=== PATIENT | female | born 1960 | race Caucasian/White ===

== ENCOUNTER 2016-07-25 18:58 | Inpatient (IN) ==
--- NOTE | 2016-07-25 19:26 | Emergency Department Note ---
SOB HPI - General Chief Complaint: Shortness of Breath/Dyspnea Stated Complaint: shortness of breathe Time Seen by Provider: 07/25/16 19:26 Source: EMS Mode of arrival: EMS - History of Present Illness This patient was found at the [facility] to have a low oxygen saturation of 65 % on room air. She seemed very sleepy now but the nurses say she will arouse and answer questions. There is some history of a recent pneumonia and she has finished antibiotics. This patient has an extensive past history which has been arranged from our system and we are trying to retrieve it. - Related Data Home Medications Medication Instructions Recorded Confirmed Alendronate Sodium [Fosamax] 70 mg PO WEEKLY 07/25/16 07/25/16 Aspirin [Fabi Chewable Aspirin] 81 mg PO DAILY 07/25/16 07/25/16 Cholecalciferol (Vitamin D3) 1 cap PO DAILY 07/25/16 07/25/16 [Dialyvite Vitamin D] Clopidogrel Bisulfate [Plavix] 75 mg PO HS 07/25/16 07/25/16 Divalproex Sodium [Depakote] 250 mg PO BID 07/25/16 07/25/16 Esomeprazole Magnesium [Nexium 40 mg PO DAILY 07/25/16 07/25/16 24Hr] Gabapentin [Neurontin] 300 mg PO Q6 07/25/16 07/25/16 Methadone [Dolophine] 2.5 mg PO BID 07/25/16 07/25/16 Nitroglycerin [Nitrostat] 0.4 mg SL PRN PRN 07/25/16 07/25/16 Ondansetron [Zofran Odt] 8 mg PO PRN PRN 07/25/16 07/25/16 Polyethylene Glycol 3350 [Miralax] 1 packet PO Q48H 07/25/16 07/25/16 Sertraline [Zoloft] 50 mg PO DAILY 07/25/16 07/25/16 Sevelamer [Renvela] 800 mg PO TIDCC 07/25/16 07/25/16 amLODIPine [Norvasc] 5 mg PO ONCE 07/25/16 07/25/16 glipiZIDE [Glucotrol] 5 mg PO DAILY 07/25/16 07/25/16 oxyCODONE HCL [Oxycodone HCl] 5 mg PO Q4H PRN 07/25/16 07/25/16 Allergies Allergy/AdvReac Type Severity Reaction Status Date / Time hydrocodone Allergy Unknown Unknown Verified 07/25/16 19:31 Iodinated Contrast Media - Allergy Unknown Unknown Verified 07/25/16 19:31 Oral and Penicillins Allergy Unknown Unknown Verified 07/25/16 19:31 Review of Systems Limitations: ROS unobtainable due to patients medical condition Past Medical History - Past Medical History Medical history: Reports: diabetes Surgical history ED: Reports: hip replacement Physical Exam - General Limitations: altered mental status General appearance: in no apparent distress - Head Head exam: atraumatic - Eye Eye exam: Present: normal appearance - ENT ENT exam: normal exam - Neck Neck exam: Present: normal inspection - Chest Chest inspection: Present: normal inspection - Respiratory Respiratory exam: Present: normal lung sounds bilaterally - Cardiovascular Cardiovascular exam: Present: regular rate, normal rhythm, normal heart sounds - Abdominal Exam Abdominal exam: Present: soft. Absent: distention, tenderness - Skin Skin exam: Present: warm, dry, intact Course Vital Signs Temperature 99.0 F 07/25/16 19:00 Pulse Rate 79 07/25/16 19:00 Respiratory Rate 16 07/25/16 19:00 Blood Pressure 147/80 07/25/16 19:00 Pulse Oximetry (%) 98 07/25/16 19:00 Temperature 99.0 F 07/25/16 19:00 Pulse Rate 74 07/25/16 20:47 Respiratory Rate 16 07/25/16 19:00 Blood Pressure 142/86 07/25/16 20:47 Pulse Oximetry (%) 92 07/25/16 20:47 Shortness of Breath/Dyspnea - Lab Data Lab results reviewed: Yes I reviewed the patient's lab results. Result diagrams: 07/25/16 19:15 07/25/16 19:15 Lab Results 07/25/16 07/25/16 07/25/16 Range/Units 19:15 19:15 19:15 WBC 6.0 (4.5-11.0) K/mcL RBC 3.43 L (4.00-5.20) M/mcL Hgb 9.7 L (12.0-15.0) g/dL Hct 30.6 L (36.0-48.0) % MCV 89.3 (80.0-100.0) fL MCH 28.3 (26.0-34.0) pg MCHC 31.7 (31.0-36.0) g/dL RDW 16.8 H (11.5-14.5) % Plt Count 333 (140-440) K/mcL MPV 8.5 (7.4-10.4) fL Gran % 67.8 (38.0-78.0) % Lymph % (Auto) 20.1 (15.5-49.0) % Stan[place]aus % (Auto) 11.0 H (1.0-9.0) % Eos % (Auto) 0.9 (0.0-7.0) % Baso % (Auto) 0.2 (0.0-2.0) % Gran # 4.1 (1.8-8.0) K/mcL Lymph # 1.2 L (1.5-4.8) K/mcL Stan[place]aus # 0.7 (0.1-0.9) K/mcL Eos # 0.1 (0.0-0.7) K/mcL Baso # 0 (0.0-0.3) K/mcL VBG Lactic Acid 2.4 H (0.5-2.2) mmol/L Sodium 127 L (133-145) mmol/L Potassium 3.6 (3.3-5.1) mmol/L Chloride 83 L (96-108) mmol/L Carbon Dioxide 30 (22-30) mmol/L Anion Gap 14.0 (8-16) BUN 40 H (6-20) mg/dl Creatinine 4.1 H (0.6-1.1) mg/dl GFR Calculation 11 Glucose 474 H* (70-105) mg/dL Calcium 8.0 L (8.6-10.4) mg/dl Total Bilirubin 0.5 (0.0-1.0) mg/dL AST 11 (0-37) U/l ALT 9 (0-40) U/l Alkaline Phosphatase 91 (39-117) U/L Total Protein 8.5 H (5.9-8.4) gm/dL Albumin 3.3 (3.2-5.2) gm/dL Globulin 5.2 H (2.2-3.7) gm/dL Albumin/Globulin Ratio 0.6 L (1.0-2.3) - Radiology Data Radiology results reviewed: Yes I reviewed the patient's radiology results. ( chest x-ray is very hard to read may show a left lower lobe infiltrate) Disposition Clinical Impression: Community acquired pneumonia Disposition: Xfer As Inpt ([facility]) Condition: Fair Referrals: Fady Malcolm MD [Primary Care Provider] - Time of Disposition: 21:15
[2016-07-25 20:10] LABS: Basophils # (Auto) 0 K/mcL (0.0-0.3); Basophils % (Auto) 0.2 % (0.0-2.0); Eosinophils # (Auto) 0.1 K/mcL (0.0-0.7); Eosinophils % (Auto) 0.9 % (0.0-7.0); Granulocytes % (Auto) 67.8 % (38.0-78.0); Lymphocytes # (Auto) 1.2 K/mcL (1.5-4.8); Lymphocytes % (Auto) 20.1 % (15.5-49.0); Mean Cell Volume 89.3 fL (80.0-100.0); Mean Corpuscular HGB Conc 31.7 g/dL (31.0-36.0); Mean Corpuscular Hemoglobin 28.3 pg (26.0-34.0); Monocytes # (Auto) 0.7 K/mcL (0.1-0.9); Platelet Count 333 K/mcL (140-440); RBC 3.43 M/mcL (4.00-5.20); Red Cell Distribution Width 16.8 % (11.5-14.5)
[2016-07-25 20:34] LABS: ALT/SGPT 9 U/l (0-40); Albumin 3.3 gm/dL (3.2-5.2); Albumin/Globulin Ratio 0.6 (1.0-2.3); Alkaline Phosphatase 91 U/L (39-117); Blood Urea Nitrogen 40 mg/dl (6-20)
[2016-07-25] MEDS ORDERED: LEVOFLOXACIN 500 MG/100 ML BAG IV ONE (21:14)
[2016-07-25] MEDS ORDERED: NALOXONE HCL 0.4 MG/ML VIAL IV ONE (21:21)
[2016-07-25] MEDS ORDERED: VANCOMYCIN PER PHARMACY IV ONE (23:22)
[2016-07-25] MEDS ORDERED: CEFEPIME 2 GM in DEXTROSE 5% IN WATER 50 ML IV SCH (23:22)
[2016-07-25] MEDS ORDERED: ONDANSETRON 4 MG/2 ML VIAL IV PRN (23:22)
[2016-07-25] MEDS ORDERED: ACETAMINOPHEN 325 MG TABLET PO PRN (23:22)
[2016-07-25] MEDS ORDERED: amLODIPine 5 MG TABLET PO SCH (23:22)
[2016-07-25] MEDS ORDERED: DEXTROSE 50% 50 ML VIAL IV PRN (23:22)
[2016-07-25] MEDS ORDERED: ACETAMINOPHEN 1,000 MG/100 ML BOTTLE IV PRN (23:22)
[2016-07-25] MEDS ORDERED: HEPARIN 5,000 UNIT/ML VIAL ONE (23:33)
[2016-07-25] MEDS ORDERED: amLODIPine 5 MG TABLET ONE (23:33)
[2016-07-25] MEDS ORDERED: VANCOMYCIN 500 MG VIAL ONE (23:58)
[2016-07-25] MEDS ORDERED: VANCOMYCIN 1 GM VIAL ONE (23:58)
[2016-07-26] MEDS ORDERED: CEFEPIME 2 GM in DEXTROSE 5% IN WATER 50 ML IV ONE
[2016-07-26] MEDS: 0.9 % SODIUM CHLORIDE 10 ML SYRINGE IV SCH ×4 (01:43→22:24)
[2016-07-26 01:48] LABS: Hemoglobin A1C 9.3 % HGB (4.0-6.0)
[2016-07-26] MEDS ORDERED: INSULIN GLARGINE, HUMAN 1 UNIT/0.01 ML SQ ONE (02:03)
[2016-07-26] MEDS: INSULIN GLARGINE, HUMAN 1 UNIT/0.01 ML SQ SCH ×3 (02:03→22:05)
[2016-07-26] MEDS ORDERED: INSULIN LISPRO 1 UNIT/0.01 ML UNIT SQ ONE ×2 (02:43→05:55)
[2016-07-26] MEDS: INSULIN LISPRO 1 UNIT/0.01 ML UNIT SQ SCH ×5 (05:57→22:06)
[2016-07-26 06:51] LABS: Mean Cell Volume 89.1 fL (80.0-100.0); Mean Corpuscular HGB Conc 31.9 g/dL (31.0-36.0); Mean Corpuscular Hemoglobin 28.4 pg (26.0-34.0); Platelet Count 277 K/mcL (140-440); RBC 2.78 M/mcL (4.00-5.20); Red Cell Distribution Width 16.6 % (11.5-14.5)
[2016-07-26 07:14] LABS: ALT/SGPT 6 U/l (0-40); Albumin 2.8 gm/dL (3.2-5.2); Albumin/Globulin Ratio 0.7 (1.0-2.3); Alkaline Phosphatase 69 U/L (39-117); Bilirubin,Direct < 0.2 mg/dL (0.0-0.3); Blood Urea Nitrogen 47 mg/dl (6-20); Gamma Glutamyl Transpeptidase 18 U/L (5-36); Magnesium 2.5 mg/dL (1.6-2.5); Phosphorous 2.7 mg/dL (2.7-4.5); Uric Acid 3.9 mg/dL (2.5-8.0)
[2016-07-26 07:38] LABS: Anisocytosis 1+ (NONE SEEN); Lymphocytes % 26 % (15-49); Monocytes % (Manual) 11 % (1-9); Myelocytes % 1 % (0-0); Ovalocytes FEW (NONE SEEN); Pappenheimer Bodies FEW (NONE SEEN); Platelet Estimate NORMAL (NORMAL); RBC Morphology ABNORM (NORMAL); Segmented Neutrophils % 62 % (38-78)
--- NOTE | 2016-07-26 08:27 | XRay Report ---
HISTORY: Reason for Exam:low sat FINDINGS: Lung volumes are small, especially the left side. There is moderate consolidation in the left lung and left lower lobe and around the hilum. There is a smaller infiltrate centrally in the right lung and medially in the right lower lobe. The infiltrates are much worse today than they were on 10/19/13. Heart size is upper limits of normal. IMPRESSION: Bilateral infiltrates. This is more likely due to pneumonia and atelectasis rather than congestive heart failure. Interpreted and Authenticated by: Patel Galindo 07/26/16
[2016-07-26] MEDS: DIVALPROEX 125 MG CAP.SPRINK PO SCH ×2 (09:15→21:50)
[2016-07-26] MEDS: HEPARIN 5,000 UNIT/ML VIAL SQ SCH ×2 (09:18→21:52)
[2016-07-26] MEDS: ASPIRIN 81 MG TAB.CHEW PO SCH (09:19)
[2016-07-26] MEDS: MULTIVIT,THER IRON,CA,FA & MIN 1 TABLET PO SCH (09:19)
[2016-07-26] MEDS: DOCUSATE SODIUM 100 MG CAPSULE PO SCH ×2 (09:19→21:50)
[2016-07-26] MEDS: SERTRALINE 50 MG TABLET PO SCH (09:22)
--- NOTE | 2016-07-26 09:33 | History and Physical Report ---
DATE OF ADMISSION: 07/25/2016 DATE OF ADMISSION: 07/26/2016 PRIMARY CARE PHYSICIAN: Drake Angelo MD, health claims examiner, and Fady Malcolm MD REASON FOR ADMISSION: Worsening shortness of breath, along with mental status change. HISTORY OF CHIEF COMPLAINT: The patient is a 56-year-old with history of ESRD, on hemodialysis. She is a resident of a skilled nursing. She was discovered by staff short of breath, confused, weak, and very drowsy. Patient was sent to [facility] ER for evaluation. Initial workup was significant for severe hypoxia, requiring 4 liters of oxygen, with PaO2 75 on 4 liters of oxygen. The patient was promptly started on BiPAP. She is also significantly somnolent. She was given Narcan with arousal. Subsequently, hospitalist service was consulted in light of encephalopathy likely secondary to opioid excess, along with hypoxic respiratory failure and basilar pneumonia on imaging. At the time of examination, the patient is on BiPAP, barely able to open her eyes. No history could be obtained. Most of the history was obtained from review of medical records, from ER physician, and skilled nursing records. The patient, however, denies chest pain, palpitations. She has significant lower extremity vascular changes, with skin pigmentation. She is chronically on hemodialysis. PAST MEDICAL HISTORY: Significant for: 1. ESRD, on hemodialysis. 2. Renal osteodystrophy. 3. Coronary artery disease. 4. Diabetes mellitus type 2. 5. 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 6. Atypical seizures. 7. CVA 2012. 8. History of coronary artery disease, with stent placement. 9. Hyperlipidemia. 10. Hypertension. 11. Depression. SURGICAL HISTORY: 1. . 2. Appendectomy. 3. Cholecystectomy. 4. Hysterectomy. 5. Multiple hip surgeries. 6. Ankle surgery. 7. Fistula placement. 8. Adenoidectomy. 9. Coronary angiogram 2008 and 2011. CURRENT MEDICATIONS: Oxycodone 5. Amlodipine 5. Nitroglycerin 0.4. Sertraline 50. Glipizide 5. Sevelamer 800 three times a day. Gabapentin 300 every 6 hours. Plavix 75. Methadone 2.5 twice a day. Alendronate 70 weekly. Divalproex 250 twice a day. Aspirin 81. ALLERGIES: 1. PENICILLIN. 2. HYDROCODONE. 3. CONTRAST. 4. ADHESIVES. SOCIAL HISTORY: The patient resides at the [facility]. She is a FULL CODE STATUS. The patient has a history of smoking, but quit in 2007. She is and has 5 children. TG is the son. She is retired as a transportation maintenance supervisor. All of this was obtained from review of medical records. FAMILY HISTORY: Significant for mother with diabetes, heart failure, rheumatoid arthritis, hypertension. Father with diabetes. PHYSICAL EXAMINATION: GENERAL: The patient is very somnolent, nondistressed, on BiPAP. BMI 26. Height 5 feet 10 inches. VITAL SIGNS: Blood pressure 104/51, respiratory rate 21, temperature 99, pulse 79, saturations 97 percent on 4 liters of oxygen. HEENT: Pupils symmetric. Oral cavity dry. Constricted pupils. No subconjunctival pallor. No ear or nose discharge. NECK: No lymphadenopathy. HEART: S1, S2, occasionally irregular rhythm. ESM grade 1. Widespread crackles on deep inspiration, mostly in the lower chest. ABDOMEN: Soft, nontender. LOWER EXTREMITIES: No cyanosis or clubbing. Significant stasis changes, along with pigmentation. Fistula, right upper arm. SKIN: No suspicious lesions. PSYCHIATRIC: Somnolent, fatigued, lethargic. NEURO: Nonfocal, moving all four extremities, however, fatigued. LABS AND IMAGING: White count 6, hemoglobin 9.7, platelets 233. Lactic acid 2.4, sodium 127, potassium 3.6, creatinine 4.1, BUN 40, glucose 474. A1c 9.3, calcium 8, CRP 18, procalcitonin 2.24. Blood cultures pending. ABG 7.4/59/75 on 4 liters of oxygen. X-ray chest: Left basilar infiltrate, along with atelectasis, effusion, and hilar fullness. Final read pending. ASSESSMENT AND PLAN: 56-year-old with a history of end-stage renal disease/ischemic cardiomyopathy, with last ejection fraction EF 55 percent, admitted with acute decompensated heart failure/nosocomial pneumonia and hypoxic respiratory infection. 1. Hypoxic respiratory failure, likely a combination of pneumonia and congestive heart failure, currently on noninvasive ventilation to maintain oxygenation. 2. Acute decompensated heart failure secondary to fluid overload. Continue hemodialysis per nephrology. 3. Nosocomial pneumonia. Continue cefepime and vancomycin. Await cultures. Deescalate based on cultures. 4. Acute mental status change. Likely opioid excess. 5. Other prior medical issues: a. History of diabetes mellitus type 2. Continue basal prandial insulin. b. Neuropathy. Continue gabapentin. c. Chronic pain. Continue methadone. However, in light of mental status change, dose will be lowered, and restart until patient is able to tolerate orally. d. History of seizure disorder. Continue Depakote. e. History of coronary artery disease. Continue nitroglycerin/aspirin. f. Anxiety disorder. Continue sertraline. PLAN FOR TODAY: 1. Admit in ICU. 2. Noninvasive ventilation in light of hypoxic respiratory failure. 3. Narcan for opiate reversal. 4. Broad antibiotic coverage. 5. Hemodialysis per nephrology. 6. Preexisting condition. Management as above. Overall, a high-complexity admit with SNOQUALMIE score 16 mandating ICU hospital admission. Patient is critically ill in light of ESRD with cardiomyopathy, mental status change, hypoxic respiratory failure, and nosocomial pneumonia. We will continue to closely monitor hemodynamics. She is FULL CODE. TOTAL TIME SPENT ON HISTORY AND PHYSICAL: Over 50 minutes. In addition, 35 minutes critical care time spent on reviewing blood gases, imaging, management of noninvasive ventilation, transfer patient to ICU, and continuing efforts to stabilize patient. [email or web address]:isaias Job ID: [id number] Doc ID: [id number] Ancelmo MICHAEL
--- NOTE | 2016-07-26 10:10 | Internal Med Progress Note ---
Medical - PN: Subj Patient information: Note initiated : 07/26/16 at 10:05 am Service Date, if different from initiated Date: [] Patient: Elizabeth Fortune 56 y/o F admitted on 07/25/16 for shortness of breathe. Chief Complaint: [] Interval history: 3/- patient admitted with hypoxic respiratory failure and bilateral pneumonia likely nosocomial. Started on broad antibiotic coverage. Critically ill in light of end-stage renal disease on hemodialysis mental status change. PSI over 100 , CURB 65 score 4 signifying high risk mortality. Sel[place] score 16. Admitted to ICU. Blood gases reviewed with significant hypoxia large AA gradient. Chest imaging bilateral lower lobe infiltrate/cardiomegaly. started on vancomycin/cefepime/Levaquin. continue noninvasive ventilation in light of hypoxic respiratory failure. Patient responded to Narcan suggesting excessive opioid use. If continues to deteriorate initiate mechanical ventilation. Continue hemodialysis per nephrology. elevated lactic acid is 2.4. Blood sugar at 474. pro-calcitonin 2.24highly indicative of bacterial infectious process 3/5- overnight on BiPAP. encephalopathy improved with intermittent Narcan. on broad antibiotic coverage. Blood sugars down to 300. Lactic acid improved to 1.3. Hemoglobin down to 7.4. 2 units blood transfusion. High-risk mortality. Await sputum cultures. continue ICU care. Serial ABGs and chest imaging. Patient is more alert and now responding verbal commands. No overnight fever or chills. n 30% FiO2 BiPAP. - Constitutional Vitals: Vital Signs Temp Pulse Resp BP Pulse Ox 97.4 F L 64 14 93/49 98 07/26/16 04:00 07/26/16 08:21 07/26/16 08:21 07/26/16 06:00 07/26/16 08:21 Period Temp Pulse Resp BP Sys/Negro Pulse Ox Last 24 Hr 97.4 F-99.6 F 64-82 - 93-106/49-54 96-99 Intake and Output 07/25/16 07/26/16 07/26/16 21:59 05:59 13:59 Intake Total 625 / 625 Balance 625 / 625 Weight 183 lb 12.8 oz Intake & Output: Intake & Output 07/25/16 07/26/16 07/26/16 21:59 05:59 13:59 Intake Total 625 / 625 Balance 625 / 625 Weight 183 lb 12.8 oz Intake: IV 50 / 50 Dextrose 5% in Water 50 50 / 50 ml @ 100 mls/hr IV Q12H WOLFGANG with Maxipime 2 gm Rx #:[id number] Oral 50 / 50 IV - Manual Only 525 / 525 Exam: somnolent On BiPAP 30% FiO2 no telemetry events No agitation and anxiety Fistula right arm Nondistended abdomen Medical - PN: Obj Da - Labs CBC & Chem 7: 07/26/16 06:00 07/26/16 06:00 Labs: Abnormal Lab Results 07/26/16 07/26/16 07/25/16 06:00 06:00 23:23 RBC 2.78 L Hgb 7.9 L Hct 24.8 L RDW 16.6 H Monocytes % (Manual) 11 H Myelocytes % 1 H RBC Morphology Abnorm A Anisocytosis 1+ A Pappenheimer Bodies Few A Ovalocytes Few A RBC Fragments Few A Sodium 131 L Chloride 89 L BUN 47 H Creatinine 4.7 H Glucose 304 H Hemoglobin A1c 9.3 H Calcium 7.9 L Albumin 2.8 L Globulin 4.3 H Albumin/Globulin Ratio 0.7 L Meds: Medications Acetaminophen (Tylenol) 650 mg PO Q4-6HP PRN PRN Reason: PAIN/FEVER > 101 Amlodipine Besylate (Norvasc) 5 mg PO DAILY [facility] Aspirin (Aspirin) 81 mg PO DAILY [facility] Last Admin: 07/26/16 09:19 Dose: 81 mg Clopidogrel Bisulfate (Plavix) 75 mg PO HS [facility] Dextrose (Dextrose 50%) 0 ml IV UD PRN PRN Reason: Hypoglycemia Diagnostic Test (Pha) (Accu-Chek) 1 each FS ACHS [facility] Last Admin: 07/26/16 08:59 Dose: 1 each Divalproex Sodium (Depakote Sprinkles) 250 mg PO BID [facility] Last Admin: 07/26/16 09:15 Dose: 250 mg Docusate Sodium (Colace) 100 mg PO BID [facility] Last Admin: 07/26/16 09:19 Dose: 100 mg Heparin Sodium (Porcine) (Heparin) 5,000 unit SQ Q12 [facility] Last Admin: 07/26/16 09:18 Dose: 5,000 unit Acetaminophen (Ofirmev) 1,000 mg in 100 mls @ 200 mls/hr IV Q6HP PRN PRN Reason: PAIN/FEVER > 101 Cefepime HCl 1 gm/ Dextrose 50 mls @ 100 mls/hr IV DAILY [facility] Insulin Glargine (Lantus) 10 unit SQ BID [facility] Last Admin: 07/26/16 09:19 Dose: 1 unit Insulin Human Lispro (Humalog) 0 unit SQ ACHS [facility] PRN Reason: Protocol Last Admin: 07/26/16 09:18 Dose: 3 unit Iron Carb/Multivit/Coolidge/Folic Acid (Multivitamin W/Minerals) 1 tab PO DAILY [facility] Last Admin: 07/26/16 09:19 Dose: 1 tab Ondansetron HCl (Zofran) 4 mg IV Q4-6HP PRN PRN Reason: Nausea And Vomiting Senna/Docusate Sodium (Senna Plus Tablet) 1 tab PO HS [facility] Sertraline HCl (Zoloft) 50 mg PO DAILY [facility] Last Admin: 07/26/16 09:22 Dose: 50 mg Sodium Chloride (Saline Flush) 10 ml IV Q8 [facility] Last Admin: 07/26/16 06:00 Dose: 10 ml Medical - PN: A/P - Time Spent With Patient Total time spent is greater than 50% in coordination of care (as documented) at patient's floor/unit and/or counseling patient: Greater than 35 minutes (ritical care time) (1) Nosocomial pneumonia Status: Acute Assessment and plan: * bilateral lower lobe nosocomial pneumonia- vancomycin/ cefepime and Levaquin. high-risk mortality. await sputum Gram stain. Selawik II-18. * hypoxic respiratory failure-on noninvasive ventilation. Serial ABGs and chest imaging. intubate if clinical deterioration noted. * mental status change-secondary to nosocomial pneumonia/hypoxia. * anemia of chronic disease hemoglobin 7.9. In light of history of ischemic cardiomyopathy- transfuse 2 units. * ESRD on HD. managed by Devendra Angelo nephrology * dM type II-,continue basal prandial insulin. Blood sugars improved from 479- 300. * history of CAD continue aspirin * seizure disorder continue Depakote * chronic painwith recent opioid excess requiring Narcan. Restart methadone in once patient's somnolence resolved * Anxiety disorder-hold home meds * History of hypertension-restart amlodipine once able to take orally Plan * Continue ICU care. Patient critically ill Selawik II score 18. High risk mortality * noninvasive ventilation * Broad antibiotic coverage * 2 units blood transfusion * serial chest imaging/blood gases * Hemodialysis per nephrology * Hold oral meds until patient more awake and alert * intubate if clinical deterioration noted Current Visit: Yes Medical - PN: Qual - VTE Deep Vein Thrombosis/Pulmonary Embolism Present on Admission: No
[2016-07-26] MEDS ORDERED: LEVOFLOXACIN 750 MG/150 ML BAG IV SCH (10:15)
[2016-07-26] MEDS ORDERED: 0.9 % SODIUM CHLORIDE 250 ML IV SCH (10:15)
[2016-07-26] MEDS ORDERED: NITROGLYCERIN 0.4 MG TAB.SUBL SL PRN (10:21)
[2016-07-26] MEDS: amLODIPine 5 MG TABLET PO SCH (13:09)
[2016-07-26 15:11] LABS: Vancomycin,Random 26.9 ug/ml
[2016-07-26] MEDS: CEFEPIME 1 GM in DEXTROSE 5% IN WATER 50 ML IV SCH (17:48)
[2016-07-26 18:38] LABS: Basophils # (Auto) 0 K/mcL (0.0-0.3); Basophils % (Auto) 0.2 % (0.0-2.0); Eosinophils # (Auto) 0.1 K/mcL (0.0-0.7); Eosinophils % (Auto) 1.2 % (0.0-7.0); Granulocytes % (Auto) 68.9 % (38.0-78.0); Lymphocytes # (Auto) 1.2 K/mcL (1.5-4.8); Lymphocytes % (Auto) 21.2 % (15.5-49.0); Mean Cell Volume 88.9 fL (80.0-100.0); Mean Corpuscular HGB Conc 32.4 g/dL (31.0-36.0); Mean Corpuscular Hemoglobin 28.8 pg (26.0-34.0); Monocytes # (Auto) 0.5 K/mcL (0.1-0.9); Monocytes % (Auto) 8.5 % (1.0-9.0); Platelet Count 282 K/mcL (140-440); RBC 3.09 M/mcL (4.00-5.20); Red Cell Distribution Width 16.7 % (11.5-14.5)
[2016-07-26] MEDS ORDERED: SENNOSIDES/DOCUSATE SODIUM 1 TAB TABLET PO SCH (21:00)
[2016-07-26] MEDS ORDERED: CLOPIDOGREL 75 MG TABLET PO SCH (21:00)
[2016-07-26] MEDS: METHADONE 5 MG TABLET PO SCH (21:51)
[2016-07-27] MEDS: 0.9 % SODIUM CHLORIDE 10 ML SYRINGE IV SCH ×3 (05:59→23:08)
[2016-07-27 06:43] LABS: Mean Cell Volume 89.8 fL (80.0-100.0); Mean Corpuscular HGB Conc 31.7 g/dL (31.0-36.0); Mean Corpuscular Hemoglobin 28.5 pg (26.0-34.0); Platelet Count 264 K/mcL (140-440); RBC 3.15 M/mcL (4.00-5.20); Red Cell Distribution Width 16.4 % (11.5-14.5)
[2016-07-27 06:51] LABS: Vancomycin,Random 24.7 ug/ml
[2016-07-27 07:11] LABS: ALT/SGPT 6 U/l (0-40); Albumin 2.9 gm/dL (3.2-5.2); Albumin/Globulin Ratio 0.7 (1.0-2.3); Alkaline Phosphatase 70 U/L (39-117); Bilirubin,Direct < 0.2 mg/dL (0.0-0.3); Blood Urea Nitrogen 59 mg/dl (6-20); Gamma Glutamyl Transpeptidase 11 U/L (5-36); Magnesium 2.7 mg/dL (1.6-2.5); Phosphorous 2.7 mg/dL (2.7-4.5); Uric Acid 5.4 mg/dL (2.5-8.0)
--- NOTE | 2016-07-27 07:29 | Consultation ---
DATE OF CONSULTATION: 07/26/2016 REASON FOR CONSULTATION: End-stage renal disease and shortness of breath. REFERRING PHYSICIAN: Henry Washington MD Ms. Fortune is a 56-year-old female with a history of end-stage renal disease on hemodialysis. She currently resides at [facility]. She was found to be short of breath, confused, weak and very drowsy. For those reasons, she was brought into the emergency room at [facility]. She had fever, hypoxia with oxygen of 4 liters with saturations at 75 percent. She was started on BiPAP and she received Narcan with subsequently improvement in her mental status. Overnight she has actually done better and this morning she is only on 2 liters. Chest x-ray showed bilateral infiltrates. She was found to have low hemoglobin for which she is being transfused. PAST MEDICAL HISTORY: Significant for: 1. End-stage renal disease on hemodialysis. 2. Renal osteodystrophy. 3. Coronary artery disease. 4. Type 2 diabetes. 5. Multiple fractures. It is not clear as what the etiology of her fractures is. It is thought to be more of osteoporosis. She is getting pamidrionate intravenously. PAST SURGICAL HISTORY: History of cholecystectomy, appendectomy, cystectomy, hysterectomy, multiple hip surgeries, ankle surgery, dialysis, fistula placement and adenoidectomy. MEDICATIONS ON ADMISSION: Oxycodone 5 mg 3 times a day. Amlodipine 5 mg once daily. Nitroglycerin as needed. Sertraline 50 mg at night. Glipizide 5 mg once daily. Methadone 2.5 mg twice daily. Sevelamer 800 mg 3 times daily. Gabapentin 300 mg every 6 hours. Aspirin 81 mg daily. ALLERGIES: PENICILLIN, HYDROCODONE, CONTRAST __. SOCIAL HISTORY: The patient is lives at [facility]. She is FULL CODE. The patient has a history of smoking, quit in 2007. She is and has 5 children. She is a retired dispatcher. FAMILY HISTORY: Significant for mother who had diabetes, heart problems and rheumatoid arthritis. EXAMINATION: GENERAL: The patient is currently alert, oriented times 3, in no apparent distress. VITAL SIGNS: Blood pressures have been 90 to 110 systolic with a diastolic in the 60s. Pulse rates have been in the 70s. HEENT: NC/AT. PERRLA. EOMI. No pallor, no cyanosis, no icterus. Fundus examination is not performed. External ear and tympanic membranes appear normal. Oral cavity appears normal. NECK: Supple. No jugular venous distention. No lymphadenopathy. No thyromegaly. No carotid bruits. LUNG EXAMINATION: Decreased air entry bilaterally. Rales heard in both bases. CARDIAC: S1, S2 heard. No S3, S4. She has a 2/6 systolic murmur. ABDOMEN: Soft, nontender. No organomegaly. Positive bowel sounds. No mass. No rebound. EXTREMITIES: Did not show any evidence of edema. NEURO EXAM: No deficits noticed. LABORATORY DATA: White count is 5.1 with hemoglobin of 7.9 and a platelet count of 277. Sodium 131, potassium 3.7, chloride of 89, CO2 of 29, BUN of 47, creatinine of 4.7. Glucose 304. Procalcitonin was elevated at 2.24. ASSESSMENT AND PLAN: 1. End-stage renal disease. She will have her regular hemodialysis treatment tomorrow. 2. Pneumonia, community acquired, with bilateral infiltrates. She is currently being treated with the hospitalist. 3. Volume status. She might be volume overloaded, but her blood pressure is marginally low so she is getting 2 units of blood transfusion. We will hold off the second unit and try to transfuse her in the morning. 4. Renal osteodystrophy. Her phosphorus is adequate at 2.7 with a calcium of 7.9. KM:patti Job ID: [id number] Doc ID: [id number] Drake MICHAEL
--- NOTE | 2016-07-27 07:30 | Echocardiogram Report ---
2-D and M-mode echocardiography with cardiac Doppler and color-flow imaging were performed with a [employer] MX. (See accompanying M-mode and Doppler reports for quantitation) INDICATION: Congestive heart failure. Overall size of the RA, RV, and LV appeared normal. LV wall thickness appeared mildly increased. Systolic performance appeared low normal. Estimated ejection fraction is 55 perecent The LA appeared mildly enlarged. The aortic root appeared borderline dilated. The root appeared sclerotic. The aortic valve appeared trileaflet and normal. There was no evidence for aortic stenosis or aortic regurgitation by Doppler interrogation. The mitral and tricuspid valves appeared unremarkable. Mitral annular calcification was present. Doppler interrogation of LV inflow disclosed normal \\"e\\" wave dominance and normal early diastolic deceleration time. There was no evidence for mitral regurgitation. Pulmonary venous interrogation disclosed \\"d\\" wave dominance, suggesting elevated pulmonary wedge pressure. The pulmonic valve showed normal \\"a\\" wave amplitude. Pulmonary artery acceleration time appeared normal. There was no evidence for pulmonic stenosis or pulmonic regurgitation. There was no evidence for tricuspid regurgitation. No intracardiac shunting was appreciated. There was no evidence for pericardial effusion. The IVC was narrow and showed normal respiratory variation. PA systolic pressure could not be calculated due to absent tricuspid regurgitation jet. Sinus rhythm, rate 72, was present. Conclusion: Borderline aortic root dilatation/root sclerosis. Mild concentric LVH with low normal systolic performance. Mitral annular calcification. Mild LA enlargement/possible elevated pulmonary wedge pressure. ECHOCARDIOGRAPHY M-MODE CALCULATIONS: HT: WT: BSA: NORMALS AORTA: AORTIC ROOT3.7 2.0-3.7 cm LEFT ATRIUM4.5 1.9-4.0 cm MITRAL VALVE: EXCURSION1.8 1.9-2.7 cm EPSS0.8 <0.5 cm LT VENTRICLE: LVID (ED)4.5 3.5-5.7 cm LVID (ES)3.0 SEPTAL THICKNESS1.2 0.6-1.1 cm SEPTAL EXCURSION0.5 0.3-0.8 cm LVPW THICKNESS1.2 0.6-1.1 cm LVPW EXCURSION0.8 0.9-1.4 cm MINOR AXIS FS3.3 25%-40% RT VENTRICLE: RVID (ED)1.5 0.9-2.6 cm (up to 3cm if LLD) QUALITATIVE DOPPLER FLOW STUDIES MITRAL VALVE AORTIC VALVE TRICUSPID VALVE PULMONIC VALVE QUANTITATIVE DOPPLER FLOW STUDIES SAMPLE SITES VELOCITIES PEAK PRESSURE VALVE AREA and/or VALVE WINDOW (PEAK,M/SEC) DROP (GRADIENT) PRESSURE HALF-TIME MV (Diastole) 1.1 (E) 0.7 (A) MV (Systole) AO (Diastole) AO (Systole) 1.5 TV (Systole) PV (Systole) 0.9 PV (Diastole) LWG:patti Job ID: [id number] Doc ID: [id number] Alejandro Cespedes MD
[2016-07-27] MEDS: INSULIN LISPRO 1 UNIT/0.01 ML UNIT SQ SCH ×4 (07:59→20:56)
[2016-07-27 08:03] LABS: Anisocytosis 1+ (NONE SEEN); Band Neutrophils % 4 % (0-10); Lymphocytes % 17 % (15-49); Monocytes % (Manual) 4 % (1-9); Platelet Estimate NORMAL (NORMAL); RBC Morphology ABNORM (NORMAL); Segmented Neutrophils % 75 % (38-78)
[2016-07-27] MEDS: ASPIRIN 81 MG TAB.CHEW PO SCH (09:12)
[2016-07-27] MEDS: DOCUSATE SODIUM 100 MG CAPSULE PO SCH ×2 (09:12→20:55)
[2016-07-27] MEDS: DIVALPROEX 125 MG CAP.SPRINK PO SCH ×3 (09:13→20:55)
[2016-07-27] MEDS: HEPARIN 5,000 UNIT/ML VIAL SQ SCH ×3 (09:13→21:03)
[2016-07-27] MEDS: CEFEPIME 1 GM in DEXTROSE 5% IN WATER 50 ML IV SCH ×2 (09:13→15:10)
[2016-07-27] MEDS: METHADONE 5 MG TABLET PO SCH ×2 (09:13→13:49)
[2016-07-27] MEDS: MULTIVIT,THER IRON,CA,FA & MIN 1 TABLET PO SCH (09:14)
[2016-07-27] MEDS: amLODIPine 5 MG TABLET PO SCH (09:14)
[2016-07-27] MEDS: INSULIN GLARGINE, HUMAN 1 UNIT/0.01 ML SQ SCH ×2 (09:14→20:56)
[2016-07-27] MEDS: SERTRALINE 50 MG TABLET PO SCH (09:14)
[2016-07-27] MEDS: LEVOFLOXACIN 500 MG/100 ML BAG IV SCH ×2 (09:14→13:42)
--- NOTE | 2016-07-27 09:14 | XRay Report ---
CLINICAL INFORMATION: CHF COMPARISON: 07/25/2016 FINDINGS: Mild cardiomegaly is unchanged. Mediastinum and pulmonary vessels are unremarkable. Moderate sized patchy infiltrate in the left mid and both lower lungs have worsened modestly. Chronic elevation left diaphragm is again noted. Small left pleural effusion is unchanged IMPRESSION: Moderate infiltrates in the left mid and both lower lungs with small left pleural effusion have worsened since previous study. Consider aspiration. Chronic elevation left diaphragm No definite evidence of CHF Interpreted and Authenticated by: Antione Osuna 07/27/16
--- NOTE | 2016-07-27 11:43 | Internal Med Progress Note ---
Medical - PN: Subj Patient information: Note initiated : 07/27/16 at 11:40 am Service Date, if different from initiated Date: [] Patient: Elizabeth Fortune 56 y/o F admitted on 07/25/16 for SOB/Heart Failure,PNA, Hypoxic RespiratoryInfection. Chief Complaint: [] Interval history: /- patient admitted with hypoxic respiratory failure and bilateral pneumonia likely nosocomial. Started on broad antibiotic coverage. Critically ill in light of end-stage renal disease on hemodialysis mental status change. PSI over 100 , CURB 65 score 4 signifying high risk mortality. [place] score 16. Admitted to ICU. Blood gases reviewed with significant hypoxia large AA gradient. Chest imaging bilateral lower lobe infiltrate/cardiomegaly. started on vancomycin/cefepime/Levaquin. continue noninvasive ventilation in light of hypoxic respiratory failure. Patient responded to Narcan suggesting excessive opioid use. If continues to deteriorate initiate mechanical ventilation. Continue hemodialysis per nephrology. elevated lactic acid is 2.4. Blood sugar at 474. pro-calcitonin 2.24highly indicative of bacterial infectious process 3/- overnight on BiPAP. encephalopathy improved with intermittent Narcan. on broad antibiotic coverage. Blood sugars down to 300. Lactic acid improved to 1.3. Hemoglobin down to 7.4. 2 units blood transfusion. High-risk mortality. Await sputum cultures. continue ICU care. Serial ABGs and chest imaging. Patient is more alert and now responding verbal commands. No overnight fever or chills. n 30% FiO2 BiPAP. 07/27- Patient seen examined, no acute overnight events. s/p blood transfusion. HD planned for today. The patient denies any new complaints. no chest pain or shortness of breath. She remains off bipap since yesterday and is doing well on 2-3 L oxygen via NC> Her microbiology is still negative, Echo shows mild lvh, low normal lvef, borderline la enlargement, possible pulm htn. X ray shows bibasilar infiltrate worsening since last X ray possible aspiration. Pt is however clinically improving. Mental status ellis she was drowsy this AM but had just woken up. she answered her questions appropriately. Hb stable at 9.0, s/p blood transfusion. Pertinent ROS: Denies headache, dizziness Denies chest pain, palpitations Denies cough or shortness of breath Denies abdominal pain, nausea or vomiting. - Constitutional Vitals: Vital Signs Temp Pulse Resp BP Pulse Ox 98 F 74 16 91/56 99 07/27/16 09:00 07/27/16 11:31 07/27/16 11:00 07/27/16 11:31 07/27/16 11:00 Period Temp Pulse Resp BP Sys/Negro Pulse Ox Last 24 Hr 97.8 F-98.8 F 71-78 10-20 86-131/50-87 1-99 Intake and Output 07/26/16 07/27/16 07/27/16 21:59 05:59 13:59 Intake Total 100 / 100 50 / 50 Output Total 7658 / 7658 Balance 100 / 100 50 / 50 -7658 / -7658 Weight 186 lb 9.6 oz Intake & Output: Intake & Output 07/26/16 07/27/16 07/27/16 21:59 05:59 13:59 Intake Total 100 / 100 50 / 50 Output Total 7658 / 7658 Balance 100 / 100 50 / 50 -7658 / -7658 Weight 186 lb 9.6 oz Intake: Oral 100 / 100 50 / 50 Output: Hemodialysis UF 7658 / 7658 Other: Meal Dinner Breakfast Percent of Meal Consumed 75% 25% Feeding Ability Assist with Tray Set Up Exam: Constitutional; Afebrile, cooperative, drowsy, not in distress. Eyes- No icterus, Pupils equal, reactive, No periorbital swelling Ears- Ext ear normal, hearing normal to conversation. Neck- Midline trachea, supple Respiratory system: Air Entry decreased at bases. Ciaran basilar crackles. CVS- Rate rhythm regular, S1,S2 heard, no gallop, no rub. Abdomen- Soft nontender abdomen, no organomegaly, no tenderness, no guarding or rigidity, [employer] TE[employer]ER- AOOx3, moving all extremities, no focal deficit noted. Medical - PN: Obj Da - Labs CBC & Chem 7: 07/27/16 04:25 07/27/16 04:25 Labs: Abnormal Lab Results 07/27/16 07/27/16 07/26/16 04:25 04:25 18:08 RBC 3.15 L 3.09 L Hgb 9.0 L 8.9 L Hct 28.3 L 27.5 L RDW 16.4 H 16.7 H Lymph # 1.2 L Monocytes % (Manual) Myelocytes % RBC Morphology Abnorm A Anisocytosis 1+ A Pappenheimer Bodies Ovalocytes RBC Fragments Sodium 128 L Chloride 86 L BUN 59 H Creatinine 6.0 H* Glucose 150 H Hemoglobin A1c Calcium 7.9 L Magnesium 2.7 H Albumin 2.9 L Globulin 4.4 H Albumin/Globulin Ratio 0.7 L Triglycerides 168 H 07/26/16 07/26/16 07/25/16 06:00 06:00 23:23 RBC 2.78 L Hgb 7.9 L Hct 24.8 L RDW 16.6 H Lymph # Monocytes % (Manual) 11 H Myelocytes % 1 H RBC Morphology Abnorm A Anisocytosis 1+ A Pappenheimer Bodies Few A Ovalocytes Few A RBC Fragments Few A Sodium 131 L Chloride 89 L BUN 47 H Creatinine 4.7 H Glucose 304 H Hemoglobin A1c 9.3 H Calcium 7.9 L Magnesium Albumin 2.8 L Globulin 4.3 H Albumin/Globulin Ratio 0.7 L Triglycerides Meds: Medications Acetaminophen (Tylenol) 650 mg PO Q4-6HP PRN PRN Reason: PAIN/FEVER > 101 Amlodipine Besylate (Norvasc) 5 mg PO DAILY [facility] Last Admin: 07/27/16 09:14 Dose: Not Given Aspirin (Aspirin) 81 mg PO DAILY [facility] Last Admin: 07/27/16 09:12 Dose: Not Given Clopidogrel Bisulfate (Plavix) 75 mg PO HS [facility] Last Admin: 07/26/16 21:53 Dose: 75 mg Dextrose (Dextrose 50%) 0 ml IV UD PRN PRN Reason: Hypoglycemia Diagnostic Test (Pha) (Accu-Chek) 1 each FS ACHS [facility] Last Admin: 07/27/16 11:38 Dose: 1 each Divalproex Sodium (Depakote Sprinkles) 250 mg PO BID [facility] Last Admin: 07/27/16 09:13 Dose: Not Given Docusate Sodium (Colace) 100 mg PO BID [facility] Last Admin: 07/27/16 09:12 Dose: Not Given Heparin Sodium (Porcine) (Heparin) 5,000 unit SQ Q12 [facility] Last Admin: 07/27/16 09:13 Dose: Not Given Acetaminophen (Ofirmev) 1,000 mg in 100 mls @ 200 mls/hr IV Q6HP PRN PRN Reason: PAIN/FEVER > 101 Cefepime HCl 1 gm/ Dextrose 50 mls @ 100 mls/hr IV DAILY [facility] Last Admin: 07/27/16 09:13 Dose: Not Given Levofloxacin (Levaquin) 500 mg in 100 mls @ 100 mls/hr IV Q48H [facility] Last Admin: 07/27/16 09:14 Dose: Not Given Insulin Glargine (Lantus) 10 unit SQ BID [facility] Last Admin: 07/27/16 09:14 Dose: Not Given Insulin Human Lispro (Humalog) 0 unit SQ ACHS [facility] PRN Reason: Protocol Last Admin: 07/27/16 11:38 Dose: Not Given Iron Carb/Multivit/[place]/Folic Acid (Multivitamin W/Minerals) 1 tab PO DAILY [facility] Last Admin: 07/27/16 09:14 Dose: Not Given Methadone HCl (Dolophine) 2.5 mg PO BID [facility] Last Admin: 07/27/16 09:13 Dose: Not Given Nitroglycerin (Nitrostat) 0.4 mg SL PRN PRN PRN Reason: Chest Pain Ondansetron HCl (Zofran) 4 mg IV Q4-6HP PRN PRN Reason: Nausea And Vomiting Senna/Docusate Sodium (Senna Plus Tablet) 1 tab PO HS [facility] Last Admin: 07/26/16 21:53 Dose: 1 tab Sertraline HCl (Zoloft) 50 mg PO DAILY [facility] Last Admin: 07/27/16 09:14 Dose: Not Given Sodium Chloride (Saline Flush) 10 ml IV Q8 [facility] Last Admin: 07/27/16 05:59 Dose: 10 ml Medical - PN: A/P - Time Spent With Patient Total time spent is greater than 50% in coordination of care (as documented) at patient's floor/unit and/or counseling patient: (1) Nosocomial pneumonia Status: Acute Current Visit: Yes - Narrative A/P Narrative: HCAP Pna- ON Broad spectrum ABX, Vanco/ cefepime and levaquin/ continue same for now, Follow microbiology. Acute hypoxic respiratory failure- Off bipap now, doing well on 2-3 L nasal oxygen, continue supplemental oxygen therapy. Anemia- Due to sepsis and ESRD, s/p transfusion, hb stable, monitor Encephalopathy- Septic vs Drug related, mental status improving, resumed home dose of methadone yesterday, monitor. ESRD- On HD, HD to be done today, Follows with Dr Angelo DVT hep sq Hyperkalemia due to ESRD, HD today Diet Renal diet Activity as tolerated . PT eval Medical - PN: Qual - VTE Deep Vein Thrombosis/Pulmonary Embolism Present on Admission: No
--- NOTE | 2016-07-27 17:12 | Nephrology Progress Note ---
Subjective Patient information: Note initiated : 07/27/16 at 5:04 pm Service Date, if different from initiated Date: [] Patient: Elizabeth Fortune 56 y/o F admitted on 07/25/16 for SOB/Heart Failure,PNA, Hypoxic RespiratoryInfection. Chief Complaint: She has been doing better. Denies any pain. Now on room air. Objective - Vital Signs Vital signs: Vital Signs Temp Pulse Pulse Resp BP BP Pulse Ox 07/27/16 16:00 98 F 73 16 106/53 96 07/27/16 15:00 73 16 123/58 96 07/27/16 14:00 74 16 115/67 100 07/27/16 13:00 74 16 103/41 99 07/27/16 12:30 98 F 82 108/60 07/27/16 12:00 97.0 F L 20 116/56 96 07/27/16 11:59 74 116/56 07/27/16 11:31 74 91/56 07/27/16 11:00 72 76 16 113/54 102/61 99 07/27/16 10:29 73 98/87 07/27/16 10:05 73 124/60 07/27/16 10:00 74 16 124/60 99 07/27/16 09:34 71 131/62 07/27/16 09:00 98 F 72 72 16 124/61 124/61 98 07/27/16 06:57 76 16 113/55 95 07/27/16 06:33 78 19 96 07/27/16 06:00 17 119/58 95 07/27/16 05:00 15 115/59 07/27/16 04:00 98.8 F 17 111/58 96 07/27/16 03:00 17 114/58 95 07/27/16 02:00 19 101/52 95 07/27/16 01:00 74 19 113/55 96 07/27/16 00:00 98.1 F 17 113/59 95 07/26/16 23:23 87 L 07/26/16 23:13 96 07/26/16 23:00 15 117/62 1 L 07/26/16 22:00 10 L 112/56 98 07/26/16 21:00 14 102/55 95 07/26/16 20:00 97.9 F 14 108/54 92 07/26/16 19:45 78 94 07/26/16 19:00 14 101/56 95 07/26/16 18:00 16 106/56 95 Intake and Output 07/27/16 07/27/16 07/27/16 05:59 13:59 21:59 Intake Total 50 / 50 328 / 328 100 / 100 Output Total 56114 / 98978 Balance 50 / 50 -73504 / -74119 100 / 100 Intake: IV 100 / 100 Oral 50 / 50 Blood Product 328 / 328 Output: # of times incontinent of urine Hemodialysis UF 98292 / 77174 Other: Meal Breakfast Percent of Meal Consumed 25% Feeding Ability Assist with Tray Set Up # Bowel Movements 0 Weight 186 lb 9.6 oz Patient Weight 07/28/16 05:59 Weight 186 lb 9.6 oz Intake & Output: Intake & Output 07/27/16 07/27/16 07/27/16 05:59 13:59 21:59 Intake Total 50 / 50 328 / 328 100 / 100 Output Total 12770 / 46008 Balance 50 / 50 -18605 / -85758 100 / 100 Weight 186 lb 9.6 oz Intake: IV 100 / 100 Oral 50 / 50 Blood Product 328 / 328 Output: # of times incontinent of 1 urine Hemodialysis UF 09203 / 08617 Other: Meal Breakfast Percent of Meal Consumed 25% Feeding Ability Assist with Tray Set Up # Bowel Movements 0 - General Appearance General appearance: well-developed EENT: ATNC Neck: no JVD Respiratory: no kyphosis Cardiology: no murmurs Gastrointestinal: normoactive bowel sounds Integumentary: no rash Neurologic: no focal deficit Musculoskeletal: no deformities - Lab 07/27/16 04:25 07/27/16 04:25 Most recent lab results Calcium 7.9 mg/dl (8.6-10.4) L 07/27/16 04:25 Phosphorus 2.7 mg/dL (2.7-4.5) 07/27/16 04:25 Magnesium 2.7 mg/dL (1.6-2.5) H 07/27/16 04:25 Assessment and Plan (1) ESRD (end stage renal disease) on dialysis 1. End-stage renal disease. She will have her regular hemodialysis treatment wednesday. 2. Pneumonia, community acquired, with bilateral infiltrates. She is currently being treated. 3. Volume status. Appear adequate. 4. Renal osteodystrophy. Her phosphorus is adequate at 2.7 with a calcium of 7.9. 5. Anemia. Multiple factors. HB stable. Status: Acute
[2016-07-27] MEDS ORDERED: NITROGLYCERIN 0.4 MG TAB.SUBL SL PRN (17:49)
[2016-07-27] MEDS ORDERED: DEXTROSE 50% 50 ML VIAL IV PRN (17:49)
[2016-07-27] MEDS ORDERED: ONDANSETRON 4 MG/2 ML VIAL IV PRN (17:49)
[2016-07-27] MEDS ORDERED: ACETAMINOPHEN 1,000 MG/100 ML BOTTLE IV PRN (17:49)
[2016-07-27] MEDS: ACETAMINOPHEN 325 MG TABLET PO PRN (19:17)
[2016-07-27] MEDS ORDERED: SENNOSIDES/DOCUSATE SODIUM 1 TAB TABLET PO SCH (21:00)
[2016-07-27] MEDS ORDERED: CLOPIDOGREL 75 MG TABLET PO SCH (21:00)
[2016-07-28 06:05] LABS: Valproic Acid (Depakene) Test 33.1 ug/ml (50.0-100.0)
[2016-07-28 06:06] LABS: ALT/SGPT 5 U/l (0-40); Albumin 2.7 gm/dL (3.2-5.2); Albumin/Globulin Ratio 0.5 (1.0-2.3); Alkaline Phosphatase 78 U/L (39-117); Bilirubin,Direct < 0.2 mg/dL (0.0-0.3); Blood Urea Nitrogen 27 mg/dl (6-20); Gamma Glutamyl Transpeptidase 13 U/L (5-36); Magnesium 2.2 mg/dL (1.6-2.5); Phosphorous 2.3 mg/dL (2.7-4.5); Uric Acid 3.4 mg/dL (2.5-8.0)
[2016-07-28] MEDS: ACETAMINOPHEN 325 MG TABLET PO PRN (07:37)
[2016-07-28] MEDS: 0.9 % SODIUM CHLORIDE 10 ML SYRINGE IV SCH (07:37)
[2016-07-28] MEDS: INSULIN LISPRO 1 UNIT/0.01 ML UNIT SQ SCH (07:44)
[2016-07-28] MEDS ORDERED: CEFEPIME 1 GM in DEXTROSE 5% IN WATER 50 ML IV SCH (09:00)
[2016-07-28] MEDS ORDERED: SERTRALINE 50 MG TABLET PO SCH (09:00)
[2016-07-28] MEDS: HEPARIN 5,000 UNIT/ML VIAL SQ SCH (09:00)
[2016-07-28] MEDS ORDERED: amLODIPine 5 MG TABLET PO SCH (09:00)
[2016-07-28] MEDS ORDERED: ASPIRIN 81 MG TAB.CHEW PO SCH (09:00)
[2016-07-28] MEDS ORDERED: MULTIVIT,THER IRON,CA,FA & MIN 1 TABLET PO SCH (09:00)
[2016-07-28] MEDS: DIVALPROEX 125 MG CAP.SPRINK PO SCH (09:00)
[2016-07-28] MEDS: DOCUSATE SODIUM 100 MG CAPSULE PO SCH (09:02)
[2016-07-28] MEDS: INSULIN GLARGINE, HUMAN 1 UNIT/0.01 ML SQ SCH (09:13)
[2016-07-28 09:22] LABS: Mean Cell Volume 89.6 fL (80.0-100.0); Mean Corpuscular HGB Conc 32.3 g/dL (31.0-36.0); Mean Corpuscular Hemoglobin 28.9 pg (26.0-34.0); Platelet Count 300 K/mcL (140-440); RBC 3.64 M/mcL (4.00-5.20); Red Cell Distribution Width 16.2 % (11.5-14.5)
[2016-07-28] MEDS ORDERED: LEVOFLOXACIN 750 MG TABLET PO ONE (10:41)
--- NOTE | 2016-07-28 10:51 | Discharge Summary ---
Medical - DS: Prov Patient information: Note initiated : 07/28/16 at 10:45 am Service Date, if different from initiated Date: [] Patient: Elizabeth Fortune 56 y/o F admitted on 07/25/16 for SOB/Heart Failure,PNA, Hypoxic RespiratoryInfection. Chief Complaint: [] Date of admission: 07/25/16 23:19 Discharge date: 07/28/16 Primary care physician: [f_Reg Prim Care Provider] Admitting clinician: Ancelmo Key Consults: Nephrology- for management of Dialysis Discharging clinician: Sylvia Montgomery Medical - DS: Meds - Discharge Medications Prescriptions: Levofloxacin [Levaquin] 500 mg PO Q48H #3 tablet oxyCODONE HCL [Oxycodone HCl] 5 mg PO Q4H PRN #40 capsule PRN Reason: Pain Active and Home Medications: Home Medications Alendronate Sodium [Fosamax] 70 mg PO WEEKLY 07/25/16 [History Confirmed Last Taken Unknown] Aspirin [Fabi Chewable Aspirin] 81 mg PO DAILY 07/25/16 [History Confirmed 09/07 Last Taken Unknown] Cholecalciferol (Vitamin D3) [Dialyvite Vitamin D] 1 cap PO DAILY 07/25/16 [ History Confirmed 07/25/16 Last Taken Unknown] Clopidogrel Bisulfate [Plavix] 75 mg PO HS 07/25/16 [History Confirmed 07/25/16 Last Taken Unknown] Divalproex Sodium [Depakote] 250 mg PO BID 07/25/16 [History Confirmed 07/25/16 Last Taken Unknown] Esomeprazole Magnesium [Nexium 24Hr] 40 mg PO DAILY 07/25/16 [History Confirmed 07/25/16 Last Taken Unknown] Gabapentin [Neurontin] 300 mg PO Q6 07/25/16 [History Confirmed 07/25/16 Last Taken Unknown] Methadone [Dolophine] 2.5 mg PO BID 07/25/16 [History Confirmed 07/25/16 Last Taken Unknown] Nitroglycerin [Nitrostat] 0.4 mg SL PRN PRN 07/25/16 [History Confirmed Last Taken Unknown] Ondansetron [Zofran Odt] 8 mg PO PRN PRN 07/25/16 [History Confirmed 07/25/16 Last Taken Unknown] Polyethylene Glycol 3350 [Miralax] 1 packet PO Q48H 07/25/16 [History Confirmed 07/25/16 Last Taken Unknown] Sertraline [Zoloft] 50 mg PO DAILY 07/25/16 [History Confirmed 07/25/16 Last Taken Unknown] Sevelamer [Renvela] 800 mg PO TIDCC 07/25/16 [History Confirmed 07/25/16 Last Taken Unknown] amLODIPine [Norvasc] 5 mg PO ONCE 07/25/16 [History Confirmed 07/25/16 Last Taken Unknown] glipiZIDE [Glucotrol] 5 mg PO DAILY 07/25/16 [History Confirmed 07/25/16 Last Taken Unknown] oxyCODONE HCL [Oxycodone HCl] 5 mg PO Q4H PRN 07/25/16 [History Confirmed Last Taken Unknown] Medical - DS: Hosp Hospital course: Mrs. Fortune is a 56 year old female admitted to the hospital for acute hypoxic respiratory failure, HCAP pneumonia and Altered mental status. see below for hospital course 07/25- patient admitted with hypoxic respiratory failure and bilateral pneumonia likely nosocomial. Started on broad antibiotic coverage. Critically ill in light of end-stage renal disease on hemodialysis mental status change. PSI over 100 , CURB 65 score 4 signifying high risk mortality. [place] score 16. Admitted to ICU. Blood gases reviewed with significant hypoxia large AA gradient. Chest imaging bilateral lower lobe infiltrate/cardiomegaly. started on vancomycin/cefepime/Levaquin. continue noninvasive ventilation in light of hypoxic respiratory failure. Patient responded to Narcan suggesting excessive opioid use. If continues to deteriorate initiate mechanical ventilation. Continue hemodialysis per nephrology. elevated lactic acid is 2.4. Blood sugar at 474. pro-calcitonin 2.24highly indicative of bacterial infectious process /- overnight on BiPAP. encephalopathy improved with intermittent Narcan. on broad antibiotic coverage. Blood sugars down to 300. Lactic acid improved to 1.3. Hemoglobin down to 7.4. 2 units blood transfusion. High-risk mortality. Await sputum cultures. continue ICU care. Serial ABGs and chest imaging. Patient is more alert and now responding verbal commands. No overnight fever or chills. n 30% FiO2 BiPAP. 07/27- Patient seen examined, no acute overnight events. s/p blood transfusion. HD planned for today. The patient denies any new complaints. no chest pain or shortness of breath. She remains off bipap since yesterday and is doing well on 2-3 L oxygen via NC> Her microbiology is still negative, Echo shows mild lvh, low normal lvef, borderline la enlargement, possible pulm htn. X ray shows bibasilar infiltrate worsening since last X ray possible aspiration. Pt is however clinically improving. Mental status ellis she was drowsy this AM but had just woken up. she answered her questions appropriately. Hb stable at 9.0, s/p blood transfusion. 07/28 pt doing well, she notes pain in the right hip and right knee, but this is a chr issue, her methadone has been stopped by Dr Angelo in light of her AMS likely from narcotic use. She will however continue use of tylenol for pain and her home dose of oxycodone. The patient otherwise had no complaints, no cp, sob , doing well. Oxygen staturation was normal on room air 95%, she was lying comfortably in bed. She is able to tolerate PO. HD done yesterday. HCAP PNA- Treated with broad spectrum antibiotics, cefepime levofloxacin. will continue levofloxacin on discharge for6 more days (500mg every 48 hrs). Her microbiology was negative. ESRD on HD, follows with Dr Angelo, last HD done yesterday, tolerated session well Altered mental status/ encephalopathy- SEcondary to opiate vs infection, Improved after cessation of methadone. Continue to stay off same for now. Follow up with PCP for pain management. As per chart she is also on oxycodone 5mg which is continued as home dose, she will also take tylenol for pain management. Already on gabapentin. Hypoxic resp failure- due to pneumonia, treated with bipap, and oxygen supplemention. On day of discharge she was doing well without any oxygen. ANemia- LIkely from ESRD / sEpsis s/p 1 unit PRBC transfusion. Hb remained stable on discharge Hb 10 today. Discharge diagnosis: Pneumonia, ESRD, Anemia - Time Spent with Patient Total time spent providing and/or coordinating discharge services: Greater than 30 minutes Medical - DS: Exam - Constitutional Vitals: Vital Signs Temp Pulse Pulse Resp BP BP Pulse Ox 07/28/16 08:00 97.8 F 76 16 100/62 90 07/28/16 06:00 16 97 07/28/16 04:00 97.5 F L 78 20 98 03/07/17 00:00 96.9 F L 67 18 117/59 97 07/27/16 21:39 96 07/27/16 19:26 97.9 F 20 108/49 95 07/27/16 18:00 80 20 114/61 95 07/27/16 17:00 73 16 107/95 96 07/27/16 16:00 98 F 73 16 106/53 96 07/27/16 15:00 73 16 123/58 96 07/27/16 14:00 74 16 115/67 100 07/27/16 13:00 74 16 103/41 99 07/27/16 12:30 98 F 82 108/60 07/27/16 12:00 97.0 F L 20 116/56 96 07/27/16 11:59 74 116/56 07/27/16 11:31 74 91/56 07/27/16 11:00 72 76 16 113/54 102/61 99 Intake and Output 07/27/16 07/28/16 07/28/16 21:59 05:59 13:59 Intake Total 100 / 100 Balance 100 / 100 Intake: IV 100 / 100 Other: # Bowel Movements 0 Weight 176 lb 9.6 oz Additional comments: Constitutional; Afebrile, cooperative, alert, not in distress. Eyes- No icterus, No periorbital swelling Ears- Ext ear normal, hearing normal to conversation. Neck- Midline trachea, Resp- Air entry equal on both sides, rocio basilar crackles, improved from yesterday. CVS- Rate rhythm regular, S1,S2 heard, no gallop, no rub. Abdomen- Soft nontender abdomen, no organomegaly, no tenderness, no guarding or rigidity, [employer]ER- AOOx3, moving all extremities, no focal deficit noted. Medical - DS: Data Labs on day of discharge: Labs from last 24 hours 07/28/16 07/28/16 07/28/16 08:25 04:10 04:10 WBC 7.1 RBC 3.64 L Hgb 10.5 L Hct 32.6 L MCV 89.6 MCH 28.9 MCHC 32.3 RDW 16.2 H Plt Count 300 MPV 8.9 Total Counted Pending Band Neutrophils % Not Reportable Platelet Estimate Pending RBC Morphology Pending Sodium 134 Potassium 4.1 Chloride 92 L Carbon Dioxide 26 Anion Gap 16.0 BUN 27 H Creatinine 3.8 H GFR Calculation 12 Glucose 87 Uric Acid 3.4 Calcium 8.0 L Phosphorus 2.3 L Magnesium 2.2 Total Bilirubin 0.4 Direct Bilirubin < 0.2 GGT 13 AST 12 ALT 5 Alkaline Phosphatase 78 Lactate Dehydrogenase 228 Total Protein 7.7 Albumin 2.7 L Globulin 5.0 H Albumin/Globulin Ratio 0.5 L Triglycerides 197 H Valproic Acid 33.1 L Valproic Acid Dose Not Reportable Valpro Last Dose Time Not Reportable 07/28/16 04:10 WBC TNP RBC TNP Hgb TNP Hct TNP MCV TNP MCH TNP MCHC TNP RDW TNP Plt Count TNP MPV TNP Total Counted Not Reportable Band Neutrophils % Not Reportable Platelet Estimate Not Reportable RBC Morphology Not Reportable Sodium Potassium Chloride Carbon Dioxide Anion Gap BUN Creatinine GFR Calculation Glucose Uric Acid Calcium Phosphorus Magnesium Total Bilirubin Direct Bilirubin GGT AST ALT Alkaline Phosphatase Lactate Dehydrogenase Total Protein Albumin Globulin Albumin/Globulin Ratio Triglycerides Valproic Acid Valproic Acid Dose Valpro Last Dose Time Medical - DS: A/P - Patient/Caregiver Discharge Instructions Activity: as per physical therapy, increase activity as tolerated Diet: Consistent Carbohydrate, Renal Additional Instructions: Levofloxacin is 500mg every 48 hrs starting 07/29/16, take for total of 3 doses PT at [place] Resume dialysis as per previous schedule Patient to follow up with Dr Angelo as per previous schedule Pt to follow up with PCP in 7-10 days. Go to the ER for worsening condition, shortness of breath or fever - Problem Maintenance (1) Nosocomial pneumonia Status: Acute - Follow up Plan Follow up with: Fady Malcolm MD [Primary Care Provider] - Disposition: Xfer SNF Prognosis: Fair Rehab Potential: Fair I certify that the patient requires SNF services: Yes Overall status at discharge: patient is progressing back to baseline Medical - DS: Qual - VTE Deep Vein Thrombosis/Pulmonary Embolism Present on Admission: No
[2016-07-28 11:01] LABS: Anisocytosis 1+ (NONE SEEN); Band Neutrophils % 4 % (0-10); Lymphocytes % 10 % (15-49); Monocytes % (Manual) 13 % (1-9); Platelet Estimate NORMAL (NORMAL); RBC Morphology ABNORM (NORMAL); Segmented Neutrophils % 73 % (38-78)
[2016-07-29] MEDS ORDERED: LEVOFLOXACIN 500 MG/100 ML BAG IV SCH (09:00)
[2016-08-20] MEDS ORDERED: IPRATROPIUM/ALBUTEROL 3 ML AMPUL.NEB NEB ONE (10:14)
== END 2016-07-28 11:35 | DRG 193 ==
LOC: ED 18:58 → ICU 23:19
PROVIDERS: ADMIT Internal Medicine; ATTEND Internal Medicine